=== PATIENT | male | born 1945 | race Caucasian/White ===

== ENCOUNTER 2018-08-27 10:14 | Outpatient (CLI) | payer MEDICARE ==
--- NOTE | 2018-08-27 17:14 | RAD ---
RIGHT KNEE FOUR VIEWS: 08/27/18 No fracture or joint effusion was seen. There is some very tiny osteophytes noted around the joint. T he joint space is normal in width. IMPRESSION: No acute findings. POS: HOME
== END 2018-08-27 10:15 | disposition home or self-care (01) ==
LOC: BURRAD 10:14
PROVIDERS: ATTEND Family Medicine
DX: M25.561 Pain in right knee (principal)

== ENCOUNTER 2018-11-28 12:41 | Emergency (ER) | payer MEDICARE ==
[2018-11-28] MEDS ORDERED: cefTRIAXone\\ROCEPHIN 1 GM VIAL ONE (13:01)
== END 2018-11-28 13:10 | disposition home or self-care (01) ==
LOC: BURERS 12:41
DX: L03.031 Cellulitis of right toe (principal); E78.5 Hyperlipidemia, unspecified; I10 Essential (primary) hypertension; Z79.899 Other long term (current) drug therapy
CPT/HCPCS: 96372; J0696

== ENCOUNTER 2019-01-26 14:19 | Outpatient (CLI) | payer MEDICARE ==
--- NOTE | 2019-01-26 19:51 | RAD ---
RIGHT GREAT TOE THREE VIEWS: 01/26/19 No fracture or opaque foreign body was seen. There was no area of bony destruction to suggest osteomy elitis. Some bony spurring is seen at the first MTP joint. IMPRESSION: No acute bony finding. POS: HOME
== END 2019-01-26 14:20 | disposition home or self-care (01) ==
LOC: BURRAD 14:19
PROVIDERS: ATTEND Family Medicine
DX: L03.031 Cellulitis of right toe (principal)

== ENCOUNTER 2019-09-25 16:05 | Emergency (ER) | payer MEDICARE ==
[2019-09-25] MEDS ORDERED: Amoxicillin/Potassium Clav 875 MG TAB ONE (16:42)
== END 2019-09-25 16:52 | disposition home or self-care (01) ==
LOC: BURERS 16:05
DX: H65.91 Unspecified nonsuppurative otitis media, right ear (principal); H60.91 Unspecified otitis externa, right ear; I10 Essential (primary) hypertension; E78.5 Hyperlipidemia, unspecified; E78.00 Pure hypercholesterolemia, unspecified; Z79.899 Other long term (current) drug therapy
CPT/HCPCS: 69210

== ENCOUNTER 2023-04-06 13:48 | Emergency (ER) | payer MEDICARE | END 2023-04-06 14:10 | disposition home or self-care (01) | LOC: BURERS 13:48 | DX: S46.221A Laceration of muscle, fascia and tendon of other parts of biceps, right arm, initial encounter (principal); I10 Essential (primary) hypertension; W18.49XA Other slipping, tripping and stumbling without falling, initial encounter | CPT/HCPCS: 99283 ==